=== PATIENT | male | born 1955 | race Caucasian/White ===

== ENCOUNTER → 2021-07-05 | Outpatient (CLI) | payer OTHER ==
--- NOTE | 2021-07-05 08:19 | RAD ---
XR FOOT_LEFT 3 VIEWS, XR EXAM OF ANKLE_LEFT 3V Clinical indications: Reason: FALL YESTERDAY, UNABLE TO BARE WEIGHT / Spl. Instructions: / History: Left ankle: No acute fracture or dislocation or osteolytic process is evident. There is a deformity o f the posterior malleolus due to an old healed fracture. Mild degenerative spurring of the tibiotalar joint compartment. Old healed fracture of the anterior tibial plafond is seen. There is a small oste ochondral lesion with a small osteochondral fragment involving the lateral dome of the talus. A small bone fragment measures 2.5 mm in size. Therefore, this is consistent with an unstable osteochondral lesion. The mortise ankle joint is intact. Left foot: No acute fracture or dislocation or lytic process is seen. No periosteal reaction is evide nt. There is a 3.4 mm calcification of the lateral aspect of the fifth digit. This may be related to old trauma. Similar 2.2 mm round calcification is seen involving the plantar aspect of the lateral fi rst metatarsal phalangeal joint region. Prominent plantar spur of the calcaneus is seen. IMPRESSION: No acute fracture. There is a 2.5 mm osteochondral fragment of the lateral dome of the ta norma. There is mild displacement consistent with an unstable fragment. This may be further evaluated w [facility] outpatient MRI of the left ankle. Electronically signed by: Pranav Burton MD (07/05/2021 8:16 AM) [id number]
== END ==
LOC: EDBD → RAD 07:46
PROVIDERS: ATTEND Nurse Practitioner Family
DX: S99.912A Unspecified injury of left ankle, initial encounter (principal); S99.922A Unspecified injury of left foot, initial encounter; M21.862 Other specified acquired deformities of left lower leg; M25.762 Osteophyte, left knee; M25.872 Other specified joint disorders, left ankle and foot; M77.32 Calcaneal spur, left foot; W19.XXXA Unspecified fall, initial encounter; Y93.89 Activity, other specified; Y92.89 Other specified places as the place of occurrence of the external cause; Y99.8 Other external cause status
CPT/HCPCS: 73610; 73630

== ENCOUNTER → 2021-07-15 | Outpatient (CLI) | payer OTHER ==
--- NOTE | 2021-07-15 14:39 | RAD ---
EXAM: Left foot, 3 views. HISTORY: Fracture follow-up. COMPARISON: 07/05/2021 FINDINGS: 3 views of the left foot are obtained. There is a chronic fracture deformity of the posteri or malleolus. There is a small plantar spur. There is a corticated ossicle along the anterior talus. There is a stable 3 mm radiodense foreign body along the lateral fifth toe soft tissues. IMPRESSION: 1. Chronic deformity of the posterior malleolus likely due to a prior fracture. 2. Stable small foreign body along the lateral fifth toe soft tissues. 3. Note is made of a previously described osteochondral lesion involving the talar dome is not well s een on this exam. This better seen on prior dedicated ankle radiographs. Electronically signed by: Elana Smiley MD (07/15/2021 2:37 PM) [id number]
== END ==
LOC: EDBD 14:11 → RAD 14:11
PROVIDERS: ATTEND Podiatrist
DX: S90.852A Superficial foreign body, left foot, initial encounter (principal); M21.6X2 Other acquired deformities of left foot; M77.52 Other enthesopathy of left foot and ankle; M89.8X8 Other specified disorders of bone, other site; Z87.81 Personal history of (healed) traumatic fracture; W45.8XXA Other foreign body or object entering through skin, initial encounter; Y93.89 Activity, other specified; Y92.89 Other specified places as the place of occurrence of the external cause; Y99.8 Other external cause status
CPT/HCPCS: 73630

== ENCOUNTER → 2021-08-22 | Outpatient (CLI) | payer OTHER ==
--- NOTE | 2021-08-22 12:40 | RAD ---
XR FOOT_LEFT 3 VIEWS 08/22/2021 Reason: FOLLOW UP S/P LISFRANC JT STABILATION Comparison: Left foot radiographs 07/14/2021 Technique: 3 views of the left foot Findings: Interval reduction of the Lisfranc interval on these nonweightbearing views. There is a radiopaque pl edget at the base of the second and third metatarsals. Similar degenerative changes of the midfoot. N o evidence of acute fracture or dislocation. Decreased soft tissue swelling along the forefoot. Impression: Interval reduction of Lisfranc interval, possibly due to nonweightbearing views, or interval fixation . Electronically signed by: Bob Sales (08/22/2021 12:38 PM) [id number]
== END ==
LOC: RAD 08:29
PROVIDERS: ATTEND Podiatrist
DX: M19.072 Primary osteoarthritis, left ankle and foot (principal); M79.89 Other specified soft tissue disorders
CPT/HCPCS: 73630

== ENCOUNTER → 2021-09-05 | Outpatient (CLI) | payer OTHER ==
--- NOTE | 2021-09-05 09:24 | RAD ---
EXAM: Left foot, 3 views. HISTORY: Lisfranc dislocation. COMPARISON: 08/22/2021 FINDINGS: 3 views of the left foot are obtained. There is stable mild widening of the Lisfranc interv al. There is a stable pledget overlying the base of the second and third metatarsals. There is a chris gn osseous excrescence along the anterior talus. There is degenerative spurring of the midfoot. There is a small plantar spur. IMPRESSION: 1. Stable mild widening of the Lisfranc interval and postoperative change at the base of the second a nd third metatarsals. 2. Mild midfoot osteoarthritis. Electronically signed by: Elana Smiley MD (09/05/2021 9:21 AM) [id number]
== END ==
LOC: RAD 09:00
PROVIDERS: ATTEND Podiatrist
DX: S93.325A Dislocation of tarsometatarsal joint of left foot, initial encounter (principal); M19.072 Primary osteoarthritis, left ankle and foot; X58.XXXA Exposure to other specified factors, initial encounter; Y93.89 Activity, other specified; Y92.89 Other specified places as the place of occurrence of the external cause; Y99.8 Other external cause status
CPT/HCPCS: 73630

== ENCOUNTER → 2021-10-03 | Outpatient (CLI) | payer OTHER ==
--- NOTE | 2021-10-03 08:44 | RAD ---
EXAM: Left foot, 3 views. HISTORY: Tarsometatarsal dislocation. COMPARISON: 09/05/2021. FINDINGS: 3 views of the left foot with weightbearing are obtained. There is slight increased widenin g of the Lisfranc interval, likely due to differences in image projection. There are stable postopera tive changes at the base of the second and third metatarsals. There is degenerative spurring and ther e are degenerative subchondral cysts within the mid foot. There is a small plantar spur. There is a s uspected healed posterior malleolar fracture. There is a benign osseous excrescence along the anterio r talus. IMPRESSION: 1. Slight increased widening of the Lisfranc interval, likely due to differences in image projection. 2. Stable postoperative change and midfoot osteoarthritis. Electronically signed by: Elana Smiley MD (10/03/2021 8:41 AM) [id number]
== END ==
LOC: RAD 08:07
PROVIDERS: ATTEND Podiatrist
DX: S93.325D Dislocation of tarsometatarsal joint of left foot, subsequent encounter (principal); M19.072 Primary osteoarthritis, left ankle and foot; M77.32 Calcaneal spur, left foot; M77.52 Other enthesopathy of left foot and ankle; X58.XXXD Exposure to other specified factors, subsequent encounter
CPT/HCPCS: 73630

== ENCOUNTER → 2021-11-14 | Outpatient (CLI) | payer OTHER ==
--- NOTE | 2021-11-14 14:11 | RAD ---
XR FOOT_LEFT 3 VIEWS History: Reason: FOOT FX WEIGHT BEARING / Spl. Instructions: / History: Technique: 3 views left foot Comparison: October 03, 2021 and September 05, 2021 Findings: Postoperative changes mid foot, unchanged. Decreased widening of the Lisfranc interval. No dislocatio n. No acute fracture. Mild midfoot degenerative changes. Plantar calcaneal spur. Mild ankle DJD. Vasc ular calcifications. Impression: 1. Mild widening of the Lisfranc interval, decreased compared to prior. 2. Unchanged midfoot DJD. Electronically signed by: Luiz Garcia DO (11/14/2021 2:08 PM) [id number]
== END ==
LOC: RAD 09:14
PROVIDERS: ATTEND Podiatrist
DX: S93.325A Dislocation of tarsometatarsal joint of left foot, initial encounter (principal); M19.072 Primary osteoarthritis, left ankle and foot; M77.32 Calcaneal spur, left foot; X58.XXXA Exposure to other specified factors, initial encounter; Y93.89 Activity, other specified; Y92.89 Other specified places as the place of occurrence of the external cause; Y99.8 Other external cause status
CPT/HCPCS: 73630

== ENCOUNTER → 2022-01-02 | Outpatient (CLI) | payer OTHER ==
--- NOTE | 2022-01-02 09:27 | RAD ---
EXAM: Left foot, 3 views. HISTORY: Fracture follow-up. COMPARISON: 11/14/2021 FINDINGS: 3 views of the left foot are obtained. There is stable widening of the Lisfranc interval. T here is stable postoperative instrumentation at the base of the third metatarsal. There is degenerati ve spurring and there are subchondral cysts within the mid foot. There are vascular calcifications. T here is a small plantar spur. There is a chronic appearing posterior malleolar fracture. There is a b enign osseous excrescence along the anterior talus. IMPRESSION: 1. Mild widening of the Lisfranc interval, stable in appearance. 2. Postoperative and degenerative change involving the midfoot. 3. Small plantar spur. Electronically signed by: Elnaa Smiley MD (01/02/2022 9:24 AM) [id number]
== END ==
LOC: RAD 08:42
PROVIDERS: ATTEND Podiatrist
DX: S93.325A Dislocation of tarsometatarsal joint of left foot, initial encounter (principal); M19.072 Primary osteoarthritis, left ankle and foot; M77.52 Other enthesopathy of left foot and ankle; Z98.890 Other specified postprocedural states; X58.XXXA Exposure to other specified factors, initial encounter; Y93.89 Activity, other specified; Y92.89 Other specified places as the place of occurrence of the external cause; Y99.8 Other external cause status
CPT/HCPCS: 73630